=== PATIENT | female | born 1955 | race Caucasian/White ===

== ENCOUNTER → 2019-04-07 | Outpatient (CLI) | payer OTHER ==
--- NOTE | 2019-04-08 11:21 | KCIC ---
STUDY: MRI of the right shoulder without contrast INDICATION: Pain and limited range of motion. COMPARISON: None. TECHNIQUE: Multiplanar MR imaging of the right shoulder performed without the use of intravenous or intra-articular contrast. FINDINGS: AC joint: Moderate AC joint arthrosis. Small amount of fluid within the subacromial subdeltoid bursa. Rotator cuff: Supraspinatus tendinosis. Superimposed high-grade articular sided tear of the supraspinatus extending from the leading edge posteriorly over an AP dimension of approximately 1.6 cm, image 15 series 9. The tear involves approximately 80% tendon cross-sectional thickness with a degree of tendon thinning most pronounced at the footprint and becoming less extensive medial to the footprint. Infraspinatus tendinosis as well without high-grade tear. The teres minor is intact. Subscapularis tendinosis and partial articular sided tearing. Rotator cuff musculature bulk is maintained. Labrum: Intact. Long head biceps tendon: Intra-articular long head biceps tendinosis as well as partial tearing of the tendon approaching the bicipital groove where the tendon is thinned. Cartilage: No full-thickness defect identified. Bones: No acute fracture or aggressive marrow signal abnormality. Degenerative cystic change along the greater tuberosity. Miscellaneous: No significant shoulder joint effusion. No axillary adenopathy. Impression: 1. Supraspinatus and infraspinatus tendinosis as well as a high-grade articular sided tear of the supraspinatus extending from the leading edge posteriorly over an AP dimension of 1.6 cm. Approximately 80% cross-sectional tendon involvement which is most pronounced at the footprint. Rotator cuff muscular bulk is maintained. 2. Intra-articular long head biceps tendinosis as well as partial tendon tearing approaching the bicipital groove where the tendon is thinned. 3. Moderate AC joint arthrosis. Small amount of fluid within the subacromial subdeltoid bursa. Electronically signed by: IVETTE CHING MD (04/08/2019 11:18 AM) [id number]
== END | disposition home or self-care (01) ==
LOC: KCIC MRI 14:15
PROVIDERS: ATTEND Physician Assistant Medical
DX: S46.811A Strain of other muscles, fascia and tendons at shoulder and upper arm level, right arm, initial encounter (principal); M19.011 Primary osteoarthritis, right shoulder; X58.XXXA Exposure to other specified factors, initial encounter; Y93.89 Activity, other specified; Y92.89 Other specified places as the place of occurrence of the external cause; Y99.8 Other external cause status
CPT/HCPCS: 73221